=== PATIENT | male | born 1985 | race Two or more races ===

== ENCOUNTER 2017-04-20 10:44 | Emergency (ER) | payer SELFPAY ==
[2017-04-20 11:00] VITALS: RESP 18; TEMP 97.7; O2SAT 96
--- NOTE | 2017-04-20 11:01 | EDPHY ---
H & P Time Seen by Provider: 04/20/17 10:55 HPI/ROS: CHIEF COMPLAINT: Right middle finger injury HISTORY OF PRESENT ILLNESS: The patient is a 32-year-old male who was "finger wrestling" with his friend yesterday. He heard a pop. He now has significant swelling. Moderate pain at the base of his right middle finger. No other injury. No previous surgeries. REVIEW OF SYSTEMS: Negative Past Medical/Surgical History: Past surgical history: Noncontributory Physical Exam: General Appearance: Alert and no distress. Head: Pupils equal. Normal. Respiratory: No respiratory distress. Cardiac: regular rate and rhythm. Extremities: patient has significant feeling at the base of his right middle finger. This extends to his 3rd metacarpal. There is tenderness palpation at the base of the right middle finger. No significant hand tenderness palpation. No wrist tenderness or swelling.. Skin: No rashes or lesions. Neuro: Alert. Normal mood and affect. Constitutional: Initial Vital Signs Temperature (C) 36.5 C 04/20/17 10:57 Heart Rate 75 04/20/17 10:57 Respiratory Rate 18 04/20/17 10:57 Blood Pressure 96/75 L 04/20/17 10:57 O2 Sat (%) 96 04/20/17 10:57 O2 Delivery Mode Room Air Allergies/Adverse Reactions: No Known Allergies Allergy (Unverified 04/20/17 10:56) Home Medications: Medication Instructions Recorded NK [No Known Home Meds] 04/20/17 Medical Decision Making ED Course/Re-evaluation: In the emergency department the patient consented to an x-ray. The right hand x-ray: Please refer the dictated report. Patient has a fracture at the base of his middle finger. This is minimally displaced. I discussed the results with the patient. I answered all his questions. Patient was placed on Ortho Glass splint. This splinted his 3rd and 4th fingers extending past his wrist. He was neurovascularly intact distally post splint placement. Differential Diagnosis: My differential includes but is not limited to fracture, dislocation, contusion , sprain, strain Departure - Departure Disposition: Home, Routine, Self-Care Clinical Impression: Finger fracture, right Qualifiers: Encounter type: initial encounter Finger: middle finger Fracture type: closed Phalanx: proximal Fracture alignment: nondisplaced Qualified Code(s): S62.642A - Nondisplaced fracture of proximal phalanx of right middle finger, initial encounter for closed fracture Condition: Good Instructions: Finger Fracture (ED) Additional Instructions: Keep your splint in place. You broke the base of a middle finger. Referrals: Tommy Be MD [Medical Doctor] - 5-7 days, call for appt.
[2017-04-20 18:02] VITALS: BP 127/85; PULSE 67
== END 2017-04-20 12:15 | disposition home or self-care (01) ==
LOC: CED 10:44
DX: S62.642A Nondisplaced fracture of proximal phalanx of right middle finger, initial encounter for closed fracture (principal); W51.XXXA Accidental striking against or bumped into by another person, initial encounter; Y99.8 Other external cause status; Y93.72 Activity, wrestling
CPT/HCPCS: 73130-PO